=== PATIENT | female | born 1985 | race Caucasian/White ===

== ENCOUNTER 2016-05-05 19:09 | Emergency (ER) | payer SELFPAY ==
[2016-05-05] MEDS ORDERED: PROPARACAINE HCL 0.5% 300 GTTS/BOT SOLN.DROP ONE (19:21)
== END 2016-05-05 20:09 | disposition home or self-care (01) ==
LOC: ED 19:09
DX: S05.01XA Injury of conjunctiva and corneal abrasion without foreign body, right eye, initial encounter (principal); F17.210 Nicotine dependence, cigarettes, uncomplicated; W27.8XXA Contact with other nonpowered hand tool, initial encounter; Y93.89 Activity, other specified; Y92.9 Unspecified place or not applicable
CPT/HCPCS: 99283 ×2; A9270